=== PATIENT | female | born 1975 | race Caucasian/White ===

== ENCOUNTER 2016-05-30 15:30 | Emergency (ER) | payer MEDICAID ==
[2016-05-30] MEDS ORDERED: METOCLOPRAMIDE 10 MG/2 ML VIAL ONE (16:26)
[2016-05-30] MEDS ORDERED: DIPHENHYDRAMINE 50 MG/ML VIAL ONE (16:27)
[2016-05-30] MEDS ORDERED: KETOROLAC 30 MG/ML VIAL ONE (16:27)
== END 2016-05-30 19:15 | disposition home or self-care (01) ==
LOC: ER 15:30
CPT/HCPCS: 36415; 71010; 80053; 82550; 83735; 84484; 85025; 85610; 85730; 93005; 96374; 96375

== ENCOUNTER 2016-06-08 19:02 | Emergency (ER) | payer MEDICAID ==
[2016-06-08] MEDS ORDERED: DILAUDID 1 MG/ML AMP ONE (20:44)
[2016-06-08] MEDS ORDERED: LORAZEPAM 2 MG/ML VIAL ONE (22:02)
[2016-06-08] MEDS ORDERED: KETOROLAC 30 MG/ML VIAL ONE (22:03)
== END 2016-06-08 23:19 | disposition home or self-care (01) ==
LOC: ER 19:02
DX: M94.0 Chondrocostal junction syndrome [Tietze] (principal); M99.02 Segmental and somatic dysfunction of thoracic region; Z79.899 Other long term (current) drug therapy; Z79.82 Long term (current) use of aspirin; F17.210 Nicotine dependence, cigarettes, uncomplicated
CPT/HCPCS: 36415; 71010; 80053; 82550; 83735; 84484; 85025; 85610; 85730; 93005; 96374; 96375

== ENCOUNTER 2016-06-27 12:49 | Emergency (ER) | payer MEDICAID | END 2016-06-27 18:42 | disposition home or self-care (01) | LOC: ER 12:49 | DX: J01.00 Acute maxillary sinusitis, unspecified (principal); J01.10 Acute frontal sinusitis, unspecified; M79.604 Pain in right leg; Z79.899 Other long term (current) drug therapy; Z79.82 Long term (current) use of aspirin | CPT/HCPCS: 36415; 71020; 80053; 85025; 85610; 85730; 87804; 93971 ==